=== PATIENT | female | born 1950 | race Caucasian/White ===

== ENCOUNTER → 2021-08-18 | Day surgery (SDC) | payer OTHER ==
[~2021-08-18] VITALS: Ht 167.6 cm; Wt 77.1 kg
[2021-08-18 09:40] VITALS: BP 149/92
[2021-08-18 11:27] VITALS: BP 109/61
[2021-08-18 11:43] VITALS: BP 119/62
[2021-08-18 11:57] VITALS: BP 153/62
== END | disposition home or self-care (01) ==
LOC: SDC 08-13 10:45
PROVIDERS: ATTEND Ophthalmology
DX: H25.811 Combined forms of age-related cataract, right eye (principal); Z88.0 Allergy status to penicillin

== ENCOUNTER → 2021-09-29 | Day surgery (SDC) | payer OTHER ==
[~2021-09-29] VITALS: Ht 167.6 cm; Wt 77.1 kg
[~2021-09-29] MED LIST: OCUFLOX 0.3% 5 M5 ML OPH; PRED FORTE5 ML OP
[2021-09-29 08:00] VITALS: BP 134/53
[2021-09-29 09:46] VITALS: BP 125/64
[2021-09-29 10:01] VITALS: BP 127/63
[2021-09-29 10:16] VITALS: BP 132/53
== END | disposition home or self-care (01) ==
LOC: SDC 09-23 11:00
PROVIDERS: ATTEND Ophthalmology
DX: H25.812 Combined forms of age-related cataract, left eye (principal)